=== PATIENT | male | born 1965 | race Caucasian/White ===

== ENCOUNTER 2024-08-27 23:44 | Inpatient (IN) | payer BC, SELFPAY ==
[2024-08-27 23:45] VITALS: BP 76/46; PULSE 62; RESP 15; TEMP 36.5; O2SAT 95; BMI 28.8
[2024-08-27] MEDS: sodium chloride 0.9% 1,000 ML 999 ML IV (23:45)
[2024-08-28] VITALS (102 sets, daily range): BP systolic 71–147; BP diastolic 41–115; PULSE 49–94; RESP 14–35; TEMP 37.1; O2SAT 94–100; BMI 29.7
--- NOTE | 2024-08-28 00:22 | XRR_ITS ---
PROCEDURE INFORMATION: Exam: XR Chest Exam date and time: 08/28/2024 12:26 AM Age: 59 years old Clinical indication: Other: Syncope TECHNIQUE: Imaging protocol: Radiologic exam of the chest. Views: 1 view. COMPARISON: No relevant prior studies available. FINDINGS: Lungs: Unremarkable. No consolidation. Pleural spaces: Unremarkable. No pleural effusion. No pneumothorax. Heart/Mediastinum: Unremarkable. No cardiomegaly. Bones/joints: Unremarkable. XR/XR chest 1V portable [id number] IMPRESSION: No acute findings.
--- NOTE | 2024-08-28 00:23 | ECG_ITS ---
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 Measurements Intervals [place] Rate: 59 P: 72 [place]: 226 QRS: 54 QRSD: 129 T: 69 QT: 423 QTc: 420 Interpretive Statements SINUS BRADYCARDIA WITH FIRST DEGREE AV BLOCK MODERATE INTRAVENTRICULAR CONDUCTION DELAY [110+ ms QRS DURATION] No previous ECG available for comparison Electronically Signed On 08-28-2024 17:46:50 CDT by Faisal Mosley M.D. [email or web address] [id number]
[2024-08-28 00:30] LABS: Basophils # 0.1 10^3/uL (0.0-0.1); Basophils % 0.7 %; Eosinophils # 0.1 10^3/uL (0.0-0.8); Eosinophils % 1.7 %; Hematocrit 28.2 % (37-53); Lymphocytes # 1.3 10^3/uL (0.8-4.8); Lymphocytes % 19.2 %; Mean Corpuscular HGB Conc 34.8 g/dL (30-55); Mean Corpuscular Hemoglobin 30.2 pg (27-33); Mean Corpuscular Volume 86.8 fl (82-101); Monocytes # 0.6 10^3/uL (0.2-0.9); Monocytes % 8.6 %; Neutrophils # 4.75 10^3/uL (1.8-7.7); Neutrophils % 69.4 %; Nucleated Red Blood Cells % 0 %; Platelet Count 159 10^3/cmm (157-399); Red Blood Count 3.25 10^6/uL (3.85-5.65); Red Cell Distribution Width 14.3 % (12.1-15.1); White Blood Count 6.86 10^3/uL (3.29-11.43)
[2024-08-28 00:38] LABS: Glucose Point of Care 125 mg/dL (70-110)
--- NOTE | 2024-08-28 00:38 | W.ED.SYNCOPE ---
Documented by User: Vadim Santiago DO 08/28/24 04:50 HPI - Syncope General: Chief Complaint: Syncope Stated Complaint: syncope Time Seen by Provider: 08/28/24 00:22 History of Present Illness: The patient presents with a chief complaint of syncope, reporting I just sat up and passed out. The patient describes a gradual decline in overall health, with recent changes in appetite and eating habits. They report having a huge appetite but experience gagging and vomiting after consuming only a few bites of food. The patient has recently made dietary changes, including cutting out soda consumption. They mention a history of hypertension and have been taking spironolactone and potassium supplements as prescribed by their primary care physician. The patient notes that when they run out of potassium or stop taking it, their potassium numbers tanked. The patient denies experiencing pain with urination, diarrhea, constipation, shortness of breath, chest pains, vomiting blood, or blood in stools. They also deny any recent hospitalizations. The patient is not currently taking Lasix. Patient is a poor historian. Related Data Home Medications ?Medication ?Instructions ?Recorded ?Confirmed bumetanide 1 mg tablet 1 mg PO BID 08/28/24 08/28/24 carvedilol 6.25 mg tablet 6.25 mg PO BID 08/28/24 08/28/24 gemfibrozil 600 mg tablet 600 mg PO BID 08/28/24 08/28/24 hydralazine 25 mg tablet See Rx Instructions .Route .COMPLEX 08/28/24 08/28/24 losartan 100 mg tablet 100 mg PO DAILY 08/28/24 08/28/24 potassium gluconate 600 mg (99 mg) 600 mg PO BID 08/28/24 08/28/24 tablet spironolactone 25 mg tablet 25 mg PO DAILY 08/28/24 08/28/24 Allergies Allergy/AdvReac Type Severity Reaction Status Date / Time acetaminophen (From Vicodin) Allergy Unknown Verified 08/28/24 00:13 fentanyl Allergy Unknown Verified 08/28/24 00:13 hydrocodone (From Vicodin) Allergy Unknown Verified 08/28/24 00:13 lisinopril Allergy ALGY-Difficulty Verified 08/28/24 00:13 Swallowing Review of Systems General: Reports: 10 or more systems reviewed and unremarkable except in HPI and below Physical Exam Const: COMMON NORMALS: no acute distress, patient oriented x3, healthy appearing, alert and well nourished HENMT: COMMON NORMALS: normocephalic HEAD & SCALP: normocephalic Eye: COMMON NORMALS: EOMs intact bilaterally Neck/C-Spine: COMMON NORMALS: full ROM and supple Resp: COMMON NORMALS: normal respiratory effort, No retractions and clear to auscultation bilaterally AUSCULTATION: clear to auscultation bilaterally Cardio: COMMON NORMALS: regular rhythm, No gallops present (Cardio) and No murmurs present (Cardio) RATE: bradycardic RHYTHM: regular rhythm GI: COMMON NORMALS: Soft to palpation and non-tender PALPATION: Yes Soft to palpation Extremity: GENERAL: Yes normal exam except as noted Neuro: COMMON NORMALS: patient oriented x3 SENSORIUM/ORIENTATION: Yes alert Skin: COMMON NORMALS: no rashes or lesions noted GENERAL SKIN EXAM: no rashes or lesions noted Course Vital Signs: Vital signs: Vital Signs Temperature 97.7 F 08/27/24 23:45 Pulse Rate 88 08/28/24 10:22 Respiratory Rate 22 H 08/28/24 05:58 Blood Pressure 103/62 08/28/24 08:39 Pulse Oximetry 98 08/28/24 10:22 Oxygen Delivery Me thod Room Air 08/28/24 10:22 MDM - Syncope Medical Decision Making 59-year-old male presents to the emergency department for evaluation of a syncopal episode. Upon arrival in the emergency department he is significantly hypotensive. Initial 1000 mL fluid bolus did not improve his blood pressure. Patient was alert and oriented. On his EKG he is sinus bradycardic with first-degree AV block. Patient was started on Levophed with some improvement in his blood pressure. However, his heart rate started to slow. The patient was then switched to epinephrine. Patient's labs demonstrated anemia with a hemoglobin of 9.8. He appears to have acute kidney failure with a BUN of 115 and a creatinine of 5.1. Additionally he has hyponatremia and significant hyperkalemia. The patient received calcium gluconate, insulin, and dextrose. Patient's abdominal/pelvis CT was normal. Had a normal chest x-ray. Urinalysis and urine drug screen were also noncontributory. Contacted [facility] for transfer for nephrology and CRRT. Awaiting callback from heating worker. Case signed out to Dr. Renee. Lab Data 08/28/24 00:04 08/28/24 05:52 Radiology Impressions Chest X-Ray 08/28/24 00:22 IMPRESSION: No acute findings. Abdomen/Pelvis CT 08/28/24 02:17 IMPRESSION: No evidence of acute abdominal or pelvic process. Laboratory Results WBC 6.86 10^3/uL (3.29-11.43) 08/28/24 00:04 RBC 3.25 10^6/uL (3.85-5.65) L 08/28/24 00:04 Hgb 9.80 g/dL (11.27-16.99) L 08/28/24 00:04 Hct 28.2 % (37-53) L 08/28/24 00:04 MCV 86.8 fl (82-101) 08/28/24 00:04 MCH 30.2 pg (27-33) 08/28/24 00:04 MCHC 34.8 g/dL (30-55) 08/28/24 00:04 RDW 14.3 % (12.1-15.1) 08/28/24 00:04 Plt Count 159 10^3/cmm (157-399) 08/28/24 00:04 MPV 10.0 fL (7.4-10.4) 08/28/24 00:04 Neut % (Auto) 69.4 % 08/28/24 00:04 Lymph % (Auto) 19.2 % 08/28/24 00:04 [place] % (Auto) 8.6 % 08/28/24 00:04 Eos % (Auto) 1.7 % 08/28/24 00:04 Baso % (Auto) 0.7 % 08/28/24 00:04 Neut # (Auto) 4.75 10^3/uL (1.8-7.7) 08/28/24 00:04 Lymph # (Auto) 1.3 10^3/uL (0.8-4.8) 08/28/24 00:04 [place] # (Auto) 0.6 10^3/uL (0.2-0.9) 08/28/24 00:04 Eos # (Auto) 0.1 10^3/uL (0.0-0.8) 08/28/24 00:04 Baso # (Auto) 0.1 10^3/uL (0.0-0.1) 08/28/24 00:04 Nucleated RBC % (auto) 0 % 08/28/24 00:04 Nucleated RBCs # 0.0 /100WBC 08/28/24 00:04 Sodium 127 mmol/L (136-145) L 08/28/24 05:52 Potassium 6.7 mmol/L (3.5-5.1) H* 08/28/24 05:52 Chloride 98 mmol/L (98-107) 08/28/24 05:52 Carbon Dioxide 13 mmol/L (22-29) L 08/28/24 05:52 Anion Gap 22.7 (5-19) H 08/28/24 05:52 BUN 107 mg/dL (6-20) H* 08/28/24 05:52 Creatinine 4.7 mg/dL (0.7-1.2) H 08/28/24 05:52 GFR Calculation 12.9 mL/min (90-130) L 08/28/24 05:52 Glucose 136 mg/dL (65-115) H 08/28/24 05:52 POC Glucose 137 mg/dL (70-110) H 08/28/24 07:18 Calculated Osmolality 300 mOsm/kg (285-295) H 08/28/24 05:52 Lactic Acid 0.9 mmol/L (0.5-2.2) 08/28/24 00:04 Calcium 9.1 mg/dL (8.5-10.5) 08/28/24 05:52 Magnesium 2.5 mg/dL (1.7-2.3) H 08/28/24 05:52 Total Bilirubin 0.3 mg/dL (0.15-1.2) 08/28/24 00:04 AST 10 U/L (0-40) 08/28/24 00:04 ALT 7 U/L (0-41) 08/28/24 00:04 Alkaline Phosphatase 49 U/L (40-130) 08/28/24 00:04 Creatine Kinase 40 U/L (39-308) 08/28/24 05:52 Troponin T Baseline 77 ng/L (0-15) H 08/28/24 00:04 Troponin T 120 Minute 62.44 ng/L (0-15) H 08/28/24 02:14 Delta Troponin T -14.56 ABS# (0-10) L 08/28/24 02:14 Troponin T Hi Sens 6Hr 61.82 ng/L (0-15) H 08/28/24 05:52 Troponin T Hi Sens 6Hr Delta -15.18 ng/L (0-12) L 08/28/24 05:52 Total Protein 6.8 g/dL (6.6-8.7) 08/28/24 00:04 Albumin 4.2 g/dL (3.5-5.2) 08/28/24 00:04 Globulin 2.6 g/dL (1.3-4.6) 08/28/24 00:04 Urine Color Yellow (Yellow) 08/28/24 01: Urine Appearance Cloudy (CLEAR) A 08/28/24 01:27 Urine pH 5.0 (5-7) 08/28/24 01: Ur Specific [place] 1.011 (1.005-1.030) 08/28/24 01:27 Urine Protein 1+ (Negative) A 08/28/24 01:27 Urine Glucose (UA) Negative (Normal) 08/28/24 01: Urine Ketones Negative (Negative) 08/28/24 01: Urine Blood Non-haemolysed trace (Negative) 08/28/24 01: Urine Nitrate Negative (Negative) 08/28/24 01:27 Urine Bilirubin Negative (Negative) 08/28/24 01: Urine Urobilinogen 0.2 mg/dL (Negative) 08/28/24 01:27 Ur Leukocyte Esterase Trace (Negative) A 08/28/24 01:27 Urine RBC 3-5 /hpf (0-2) 08/28/24 01:27 Urine WBC 0-5 /hpf (0-5) 08/28/24 01:27 Ur Squamous Epith Cells 11-20 /hpf (0-5) H 08/28/24 01: Amorphous Sediment Not Reportable 08/28/24 01:27 Urine Bacteria None seen /hpf (NONE) 08/28/24 01:27 Hyaline Casts 2.46 /lpf 08/28/24 01:27 Urine Opiates Screen Negative ng/mL (Negative) 08/28/24 01: Ur Barbiturates Screen Negative ng/mL (Negative) 08/28/24 01:27 Ur Phencyclidine Scrn Negative ng/mL (Negative) 08/28/24 01:27 Ur Amphetamines Screen Negative ng/mL (Negative) 08/28/24 01:27 U Benzodiazepines Scrn Negative ng/mL (Negative) 08/28/24 01:27 Urine Cocaine Screen Negative ng/mL (Negative) 08/28/24 01:27 U Marijuana (THC) Screen Negative ng/mL (Negative) 08/28/24 01:27 Discharge Plan Discharge Patient Disposition: Admitted As Inpatient Admit Provider: Jose Miguel Coy Clinical Impression: KILO (acute kidney injury), Hyperkalemia Condition: Stable Sign Out Sign Out Data: Patient Sign Out occurred on 08/28/24 at 05:34. Patient's care was discussed, and care was transferred from Vadim Santiago DO to Martin Renee DO. Coding Level of Care Code ED Clearing Distribution Clerk for Chg Fwd Documented by User: Martin Renee DO 08/28/24 10:35 HPI - Syncope General: Chief Complaint: Syncope Stated Complaint: syncope Time Seen by Provider: 08/28/24 00:22 Related Data Home Medications ?Medication ?Instructions ?Recorded ?Confirmed bumetanide 1 mg tablet 1 mg PO BID 08/28/24 08/28/24 carvedilol 6.25 mg tablet 6.25 mg PO BID 08/28/24 08/28/24 gemfibrozil 600 mg tablet 600 mg PO BID 08/28/24 08/28/24 hydralazine 25 mg tablet See Rx Instructions .Route .COMPLEX 08/28/24 08/28/24 losartan 100 mg tablet 100 mg PO DAILY 08/28/24 08/28/24 potassium gluconate 600 mg (99 mg) 600 mg PO BID 08/28/24 08/28/24 tablet spironolactone 25 mg tablet 25 mg PO DAILY 08/28/24 08/28/24 Allergies Allergy/AdvReac Type Severity Reaction Status Date / Time acetaminophen (From Vicodin) Allergy Unknown Verified 08/28/24 00:13 fentanyl Allergy Unknown Verified 08/28/24 00:13 hydrocodone (From Vicodin) Allergy Unknown Verified 08/28/24 00:13 lisinopril Allergy ALGY-Difficulty Verified 08/28/24 00:13 Swallowing Course Vital Signs: Vital signs: Vital Signs Temperature 97.7 F 08/27/24 23:45 Pulse Rate 88 08/28/24 10:22 Respiratory Rate 22 H 08/28/24 05:58 Blood Pressure 103/62 08/28/24 08:39 Pulse Oximetry 98 08/28/24 10:22 Oxygen Delivery Me thod Room Air 08/28/24 10:22 MDM - Syncope Medical Decision Making 59-year-old male presents to the emergency department for evaluation of a syncopal episode. Upon arrival in the emergency department he is significantly hypotensive. Initial 1000 mL fluid bolus did not improve his blood pressure. Patient was alert and oriented. On his EKG he is sinus bradycardic with first-degree AV block. Patient was started on Levophed with some improvement in his blood pressure. However, his heart rate started to slow. The patient was then switched to epinephrine. Patient's labs demonstrated anemia with a hemoglobin of 9.8. He appears to have acute kidney failure with a BUN of 115 and a creatinine of 5.1. Additionally he has hyponatremia and significant hyperkalemia. The patient received calcium gluconate, insulin, and dextrose. Patient's abdominal/pelvis CT was normal. Had a normal chest x-ray. Urinalysis and urine drug screen were also noncontributory. Contacted [facility] for transfer for nephrology and CRRT. Awaiting callback from heating worker. Case signed out to Dr. Renee. Care assumed at change of shift patient given 30 mL/kg fluid bolus he received 1 L earlier. He was given more calcium chloride sodium bicarbonate with D5 and more insulin as well as 10 mg of nebulized albuterol. His heart rate began to improve blood pressure improved as well we are able to titrate him off of the epinephrine he did become somewhat hypotensive again. Concerned about continued fluid boluses causing hyper hyperchloremic acidosis. Will admit to ICU consult nephrology. His repeat labs show improvement of his creatinine and his potassium the other interventions we have administered I think are continuing to improve it given his bradycardia is improving. At 1 point on the rhythm monitor looks like he had a junctional rhythm that has resolved. Discussed with nephrology they feel comfortable admitting him here at this point also discussed with hospitalist will admit to the ICU. Reviewing his medicines I believe a good portion of this is iatrogenic from his Bumex spironolactone and potassium supplement as well as the losartan Medical Records I reviewed the patient's medical records. Lab Data I reviewed the patient's lab results. 08/28/24 00:04 08/28/24 05:52 Radiology Impressions Chest X-Ray 08/28/24 00:22 IMPRESSION: No acute findings. Abdomen/Pelvis CT 08/28/24 02:17 IMPRESSION: No evidence of acute abdominal or pelvic process. Laboratory Results WBC 6.86 10^3/uL (3.29-11.43) 08/28/24 00:04 RBC 3.25 10^6/uL (3.85-5.65) L 08/28/24 00:04 Hgb 9.80 g/dL (11.27-16.99) L 08/28/24 00:04 Hct 28.2 % (37-53) L 08/28/24 00:04 MCV 86.8 fl (82-101) 08/28/24 00:04 MCH 30.2 pg (27-33) 08/28/24 00:04 MCHC 34.8 g/dL (30-55) 08/28/24 00:04 RDW 14.3 % (12.1-15.1) 08/28/24 00:04 Plt Count 159 10^3/cmm (157-399) 08/28/24 00:04 MPV 10.0 fL (7.4-10.4) 08/28/24 00:04 Neut % (Auto) 69.4 % 08/28/24 00:04 Lymph % (Auto) 19.2 % 08/28/24 00:04 [place] % (Auto) 8.6 % 08/28/24 00:04 Eos % (Auto) 1.7 % 08/28/24 00:04 Baso % (Auto) 0.7 % 08/28/24 00:04 Neut # (Auto) 4.75 10^3/uL (1.8-7.7) 08/28/24 00:04 Lymph # (Auto) 1.3 10^3/uL (0.8-4.8) 08/28/24 00:04 [place] # (Auto) 0.6 10^3/uL (0.2-0.9) 08/28/24 00:04 Eos # (Auto) 0.1 10^3/uL (0.0-0.8) 08/28/24 00:04 Baso # (Auto) 0.1 10^3/uL (0.0-0.1) 08/28/24 00:04 Nucleated RBC % (auto) 0 % 08/28/24 00:04 Nucleated RBCs # 0.0 /100WBC 08/28/24 00:04 Sodium 127 mmol/L (136-145) L 08/28/24 05:52 Potassium 6.7 mmol/L (3.5-5.1) H* 08/28/24 05:52 Chloride 98 mmol/L (98-107) 08/28/24 05:52 Carbon Dioxide 13 mmol/L (22-29) L 08/28/24 05:52 Anion Gap 22.7 (5-19) H 08/28/24 05:52 BUN 107 mg/dL (6-20) H* 08/28/24 05:52 Creatinine 4.7 mg/dL (0.7-1.2) H 08/28/24 05:52 GFR Calculation 12.9 mL/min (90-130) L 08/28/24 05:52 Glucose 136 mg/dL (65-115) H 08/28/24 05:52 POC Glucose 137 mg/dL (70-110) H 08/28/24 07:18 Calculated Osmolality 300 mOsm/kg (285-295) H 08/28/24 05:52 Lactic Acid 0.9 mmol/L (0.5-2.2) 08/28/24 00:04 Calcium 9.1 mg/dL (8.5-10.5) 08/28/24 05:52 Magnesium 2.5 mg/dL (1.7-2.3) H 08/28/24 05:52 Total Bilirubin 0.3 mg/dL (0.15-1.2) 08/28/24 00:04 AST 10 U/L (0-40) 08/28/24 00:04 ALT 7 U/L (0-41) 08/28/24 00:04 Alkaline Phosphatase 49 U/L (40-130) 08/28/24 00:04 Creatine Kinase 40 U/L (39-308) 08/28/24 05:52 Troponin T Baseline 77 ng/L (0-15) H 08/28/24 00:04 Troponin T 120 Minute 62.44 ng/L (0-15) H 08/28/24 02:14 Delta Troponin T -14.56 ABS# (0-10) L 08/28/24 02:14 Troponin T Hi Sens 6Hr 61.82 ng/L (0-15) H 08/28/24 05:52 Troponin T Hi Sens 6Hr Delta -15.18 ng/L (0-12) L 08/28/24 05:52 Total Protein 6.8 g/dL (6.6-8.7) 08/28/24 00:04 Albumin 4.2 g/dL (3.5-5.2) 08/28/24 00:04 Globulin 2.6 g/dL (1.3-4.6) 08/28/24 00:04 Urine Color Yellow (Yellow) 08/28/24 01: Urine Appearance Cloudy (CLEAR) A 08/28/24 01: Urine pH 5.0 (5-7) 08/28/24 01:27 Ur Specific [place] 1.011 (1.005-1.030) 08/28/24 01: Urine Protein 1+ (Negative) A 08/28/24: Urine Glucose (UA) Negative (Normal) 08/28/24 01: Urine Ketones Negative (Negative) 08/28/24 01: Urine Blood Non-haemolysed trace (Negative) 08/28/24: Urine Nitrate Negative (Negative) 08/28/24 01: Urine Bilirubin Negative (Negative) 08/28/24 01: Urine Urobilinogen 0.2 mg/dL (Negative) 08/28/24 01:27 Ur Leukocyte Esterase Trace (Negative) A 08/28/24 01: Urine RBC 3-5 /hpf (0-2) 08/28/24 01:27 Urine WBC 0-5 /hpf (0-5) 08/28/24 01:27 Ur Squamous Epith Cells 11-20 /hpf (0-5) H 08/28/24 01:27 Amorphous Sediment Not Reportable 08/28/24 01:27 Urine Bacteria None seen /hpf (NONE) 08/28/24 01:27 Hyaline Casts 2.46 /lpf 08/28/24 01:27 Urine Opiates Screen Negative ng/mL (Negative) 08/28/24 01:27 Ur Barbiturates Screen Negative ng/mL (Negative) 08/28/24 01:27 Ur Phencyclidine Scrn Negative ng/mL (Negative) 08/28/24 01:27 Ur Amphetamines Screen Negative ng/mL (Negative) 08/28/24 01:27 U Benzodiazepines Scrn Negative ng/mL (Negative) 08/28/24 01:27 Urine Cocaine Screen Negative ng/mL (Negative) 08/28/24 01:27 U Marijuana (THC) Screen Negative ng/mL (Negative) 08/28/24 01:27 All radiology interpretation(s) finalized by discharge Critical Care Time Critical Care Time: Critical Care Time: Yes Total Critical Care Time: 35 Attestation: The high probability of a clinically significant, sudden or life threatening deterioration of the patient's cardiovascular renal system(s) required my full and direct attention, intervention and personal management. The critical care time is as shown. This time is in addition to time spent performing any reported procedures but includes the following: [x] Data and vital sign review and interpretation [x] Patient assessment, examination and intervention [x] Documentation [x] Medication orders and management Discharge Plan Discharge Patient Disposition: Admitted As Inpatient Admit Provider: Jose Miguel Coy Clinical Impression: KILO (acute kidney injury), Hyperkalemia Condition: Stable Sign Out Sign Out Data: Patient Sign Out occurred on 08/28/24 at 05:34. Patient's care was discussed, and care was transferred from Vadim Santiago DO to Martin Renee DO. Coding Level of Care Code ED Clearing Distribution Clerk for Bindu Guillen
[2024-08-28 00:42] LABS: Troponin(5th) Baseline 77 ng/L (0-15)
[2024-08-28 00:45] LABS: Alanine Aminotransferase 7 U/L (0-41); Albumin Level 4.2 g/dL (3.5-5.2); Alkaline Phosphatase 49 U/L (40-130); Anion Gap 24.4 (5-19); Aspartate Amino Transferase 10 U/L (0-40); Carbon Dioxide 12 mmol/L (22-29); Chloride 98 mmol/L (98-107); Creatinine Clr Calc Pharmacy 17.5937; Globulin 2.6 g/dL (1.3-4.6); Glomerular Filtration Rate 11.8 mL/min (90-130); Glucose 108 mg/dL (65-115); Sodium 127 mmol/L (136-145); Total Bilirubin 0.3 mg/dL (0.15-1.2); Total Protein 6.8 g/dL (6.6-8.7)
[2024-08-28 00:46] LABS: Lactic Sepsis W/Reflex 0.9 mmol/L (0.5-2.2)
[2024-08-28 00:52] LABS: Blood Urea Nitrogen 115 mg/dL (6-20); Osmolality Calculated 301 mOsm/kg (285-295); Potassium 7.4 mmol/L (3.5-5.1)
[2024-08-28] MEDS: norepinephrine 4 MG/250 ML BAG 15 MG IV ×2 (00:53→19:25)
--- NOTE | 2024-08-28 00:54 | PC.NURSE ---
PER MD, START NOREPINEPHRINE AT 4MCG/MIN.
--- NOTE | 2024-08-28 01:34 | ECG_ITS ---
[facility] Test Date: 2024-08-28 Pat Name: Dangelo trevion Department: Room: Gender: Male Electrophysiology Tech: : 1965 Requested By: Vadim Law Order Number: [id number] Lyon MD: Faisal Mosley M.D. Measurements Intervals [place] Rate: 59 P: 79 MA: 237 QRS: 56 QRSD: 112 T: 73 QT: 443 QTc: 441 Interpretive Statements SINUS BRADYCARDIA WITH SINUS ARRHYTHMIA WITH FIRST DEGREE AV BLOCK MODERATE INTRAVENTRICULAR CONDUCTION DELAY [110+ ms QRS DURATION] No previous ECG available for comparison Electronically Signed On 08-28-2024 06:19:38 CDT by Faisal Mosley M.D. [email or web address] [id number]
[2024-08-28 01:37] LABS: Bilirubin Urine Negative (Negative); Blood Urine Non-haemolysed trace (Negative); Glucose Urine UA Negative (Normal); Ketones Urine Negative (Negative); Leukocyte Esterase Urine Trace (Negative); Nitrate Urine Negative (Negative); Protein Urine 1+ (Negative); Specific Gravity, Urine 1.011 (1.005-1.030); Urine Appearance Cloudy (CLEAR); Urobilinogen Urine 0.2 mg/dL (Negative)
[2024-08-28 01:42] LABS: Add Urine Microscopic? YES; Bacteria Urine None Seen /hpf; Hyaline Casts Urine 2.46 /lpf; WBC Urine 0-5 /hpf (0-5)
[2024-08-28 01:44] LABS: Amphetamines Screen Urine Negative (Negative); Barbiturates Screen Urine Negative (Negative); Benzodiazepines Screen Urine Negative (Negative); Cocaine Screen Urine Negative (Negative); Opiate Screen Urine Negative (Negative); PCP Screen Urine Negative (Negative); THC Screen Urine Negative (Negative)
[2024-08-28] MEDS: EPINEPHrine 2.5 MG in sodium chloride 0.9% 250 ML 26.66 MG IV (01:59)
[2024-08-28 02:07] LABS: UA Slide Review UA Slide Review Perf; Urine Color Yellow (Yellow)
[2024-08-28] MEDS: dextrose 10% 250 ML 1000 ML IV (02:14)
--- NOTE | 2024-08-28 02:17 | CTR_ITS ---
PROCEDURE INFORMATION: Exam: CT Abdomen And Pelvis Without Contrast Exam date and time: 08/28/2024 2:53 AM Age: 59 years old Clinical indication: Abdominal pain; Generalized; Acute renal failure, syncopal episode, low BP; Additional info: Generalized abdominal pain, acute renal failure TECHNIQUE: Imaging protocol: Computed tomography of the abdomen and pelvis without contrast. Radiation optimization: All CT scans at this facility use at least one of these dose optimization techniques: automated exposure control; mA and/or kV adjustment per patient size (includes targeted exams where dose is matched to clinical indication); or iterative reconstruction. COMPARISON: CR (CHEST, ) 08/28/2024 12:26 AM RADIATION DOSE METRICS: Total DLP (mGy-cm): 811.6 FINDINGS: Liver: Normal. No mass. Gallbladder and biliary ducts: Normal. No calcified stones. No ductal dilation. Pancreas: Normal. No ductal dilation. Spleen: Normal. No splenomegaly. Adrenal glands: Normal. No mass. Kidneys and ureters: Normal. No hydronephrosis. Stomach and bowel: Unremarkable. No obstruction. No mucosal thickening. Appendix: No evidence of appendicitis. Intraperitoneal space: Unremarkable. No free air. No significant fluid collection. Vasculature: Aortoiliac atherosclerotic disease is seen without evidence of aneurysm. Lymph nodes: Unremarkable. No enlarged lymph nodes. Urinary bladder: Hameed catheter with the tip in the urinary bladder. Reproductive: Unremarkable as visualized. Bones/joints: Unremarkable. No acute fracture. Soft tissues: Unremarkable. CT/CT abdomen pelvis wo con [id number] IMPRESSION: No evidence of acute abdominal or pelvic process.
[2024-08-28] MEDS: calcium gluconate 0.1 gm/mL 10% SDV 10mL 1 GM IVP (02:25)
[2024-08-28 02:41] LABS: Troponin 5 2HR 62.44 ng/L (0-15)
[2024-08-28 02:42] LABS: Troponin 5 2HR Delta -14.56 ABS# (0-10)
[2024-08-28] MEDS: insulin regular-human 100 units/1 mL 10 UNIT IVP ×2 (02:44→07:29)
[2024-08-28 02:47] LABS: Glucose Point of Care 120 mg/dL (70-110)
[2024-08-28 02:47] LABS: Glucose Point of Care 245 mg/dL (70-110)
[2024-08-28] MEDS: nicotine 21 mg Patch 1 PATCH TRANSDERMA (03:28)
[2024-08-28 03:29] LABS: Glucose Point of Care 176 mg/dL (70-110)
[2024-08-28 04:15] LABS: Glucose Point of Care 150 mg/dL (70-110)
[2024-08-28] MEDS: albuterol 2.5 MG/0.5 ML NEB 10 MG INHALATION (05:40)
[2024-08-28] MEDS: calcium chloride 10% Syr 10 mL 1 GM IVP (05:58)
[2024-08-28] MEDS: SODIUM CHLORIDE 0.9% 2656.23 ML IV (06:03)
--- NOTE | 2024-08-28 06:07 | ECG_ITS ---
[facility] Test Date: 2024-08-28 Pat Name: Dangelo Main Department: Room: Gender: Male Recycle Worker: : 1965 Requested By: Martin Sloan Order Number: [id number] Sonali MD: Faisal Mosley M.D. Measurements Intervals [place] Rate: 58 P: 78 CT: 223 QRS: 51 QRSD: 117 T: 59 QT: 414 QTc: 407 Interpretive Statements SINUS BRADYCARDIA WITH SINUS ARRHYTHMIA WITH FIRST DEGREE AV BLOCK MODERATE INTRAVENTRICULAR CONDUCTION DELAY [110+ ms QRS DURATION] INTERPRETATION BASED ON A DEFAULT AGE OF 40 YEARS Compared to ECG 08/28/2024 02:04:51 No significant changes Electronically Signed On 08-28-2024 17:45:18 CDT by Faisal Mosley M.D. [id number]
[2024-08-28 06:23] LABS: Anion Gap 22.7 (5-19); Calcium 9.1 mg/dL (8.5-10.5); Carbon Dioxide 13 mmol/L (22-29); Chloride 98 mmol/L (98-107); Creatine Phosphokinase 40 U/L (39-308); Creatinine Clr Calc Pharmacy 19.0911; Glomerular Filtration Rate 12.9 mL/min (90-130); Glucose 136 mg/dL (65-115); Magnesium 2.5 mg/dL (1.7-2.3); Osmolality Calculated 300 mOsm/kg (285-295); Sodium 127 mmol/L (136-145)
[2024-08-28 06:24] LABS: Glucose Point of Care 152 mg/dL (70-110)
[2024-08-28 06:31] LABS: Potassium 6.7 mmol/L (3.5-5.1)
[2024-08-28 06:32] LABS: Blood Urea Nitrogen 107 mg/dL (6-20)
[2024-08-28 06:40] LABS: Troponin 5 6HR 61.82 ng/L (0-15)
[2024-08-28 06:46] LABS: Troponin 5 6HR Delta -15.18 ng/L (0-12)
--- NOTE | 2024-08-28 06:58 | ECG_ITS ---
[facility] Date: 2024-08-28 Pat Name: Dangelo Main Department: Room: Gender: Male Instrument Assembler: : 1965 Requested By: Vadim Law Order Number: [id number] Lyon MD: Faisal Mosley M.D. Measurements Intervals [place] Rate: 70 P: 253 NH: 185 QRS: 53 QRSD: 116 T: 69 QT: 395 QTc: 427 Interpretive Statements sinus rhythm with the first degree AV block MODERATE INTRAVENTRICULAR CONDUCTION DELAY [110+ ms QRS DURATION] ABNORMAL RHYTHM ECG Compared to ECG 08/28/2024 06:07:56 Sinus bradycardia no longer present Sinus arrhythmia no longer present First degree AV block no longer present Electronically Signed On 08-28-2024 17:50:07 CDT by Faisal Mosley M.D. [email or web address] [id number]
[2024-08-28] MEDS: sodium bicarbonate 8.4% syr 150 MEQ in dextrose 5% 200 ML 700 MEQ IV (07:21)
[2024-08-28 07:31] LABS: Glucose Point of Care 137 mg/dL (70-110)
[2024-08-28] MEDS: norepinephrine 4 MG/250 ML BAG 30 MG IV (07:51)
[2024-08-28 07:52] LABS: Glucose Point of Care 174 mg/dL (70-110)
--- NOTE | 2024-08-28 09:48 | PM.CONSULT ---
Providers/Reason For Consult Consulting Physician/Specialty*: Jay Booker MD/ tele-nephrology Reason for Consult*: Acute kidney injury hyperkalemia. Requesting Physician: Dr Jose Miguel Coy Attending Physician: Jose Miguel Coy History of Present Illness History of Present Illness Dangelo Main is a 59 year old male first admission to [facility]. The patient states that he has history of pneumonia CHF chronic kidney disease and kidney stones. The patient states at home he was taking Bumex spironolactone losartan and NSAIDs. The patient presented yesterday he was lightheaded dizzy could not get up and had recurrent falls. The patient has been given IV fluids in the emergency room and feels better. The patient emergency room was found to have a potassium of 7.4, hyponatremia, increased anion gap metabolic acidosis, and acute kidney injury. When I see him now is after fluid boluses he is urinating he still on pressors in the ICU awake and alert and able to give a history. Review of Systems Narrative: Weak with falling at home severe right sided flank pain poor sleep headaches lightheadedness dizziness no cough no fevers no chills no chest pain no abdominal pain no difficulty or change in urine pattern positive leg pains. Medications/Allergies Home Medications ?Medication ?Instructions ?Recorded ?Confirmed ?Last Taken ?Type bumetanide 1 mg tablet 1 mg PO BID 08/28/24 08/28/24 08/27/24 History carvedilol 6.25 mg tablet 6.25 mg PO BID 08/28/24 08/28/24 08/27/24 History gemfibrozil 600 mg tablet 600 mg PO BID 08/28/24 08/28/24 Unknown History hydralazine 25 mg tablet See Rx Instructions .Route .COMPLEX 08/28/24 08/28/24 Unknown History losartan 100 mg tablet 100 mg PO DAILY 08/28/24 08/28/24 08/27/24 History potassium gluconate 600 mg (99 mg) 600 mg PO BID 08/28/24 08/28/24 08/27/24 History tablet spironolactone 25 mg tablet 25 mg PO DAILY 08/28/24 08/28/24 08/27/24 History Allergies Allergy/AdvReac Type Severity Reaction Status Date / Time acetaminophen (From Vicodin) Allergy Unknown Verified 05/20/25 00:13 fentanyl Allergy Unknown Verified 08/28/24 00:13 hydrocodone (From Vicodin) Allergy Unknown Verified 08/28/24 00:13 lisinopril Allergy ALGY-Difficulty Verified 08/28/24 00:13 Swallowing Current Medications Generic Name Dose Route Start Last Admin Trade Name Freq PRN Reason Stop Dose Admin Epinephrine HCl 2.5 mg/ Sodium 252.5 mls @ 26.664 mls/hr 08/28/24 01:30 08/28/24 07:23 Chloride IV 0 mcg/min .Q9H29M INDER 0 mls/hr Protocol Titration 4.4 MCG/MIN Dextrose 250 mls @ 1,000 mls/hr 08/28/24 01:32 08/28/24 02:41 D10w IV Infused PRN PRN Infusion Adult Acute Hypoglycemia Nursing Protocol Protocol Dextrose 1,000 mls @ 100 mls/hr 08/28/24 01:45 08/28/24 02:35 D10w IV Not Given .Q10H INDER Norepinephrine Bitartrate 4 mg in 250 mls @ 0 mls/hr 08/28/24 07:45 08/28/24 07:51 Levophed IV 8 mcg/min .Q0M INDER 30 mls/hr Protocol Administration Per Protocol Vitals/I&O/Wt Last Vital Signs Temp 97.7 F 08/27/24 23:45 Pulse 89 08/28/24 08:39 Resp 22 H 08/28/24 05:58 BP 103/62 08/28/24 08:39 Pulse Ox 99 08/28/24 08:39 O2 Del Method Room Air 08/28/24 07:45 08/27/24 08/28/24 08/28/24 22:59 06:59 14:59 Intake Total 1320.347 / 3864.724 1282.948 / 3152.948 Balance 1320.347 / 3428.749 7490.948 / 3152.948 Weight last 48 hrs Weight 88.541 kg Physical Exam Narrative: Patient is hemodynamically stable no apparent distress in bed on pressors. HEENT normocephalic/atraumatic. Neck is supple no JVP Lungs clear to auscultation. Heart regular no rubs or gallops. Abdomen soft positive bowel sounds extremities have no edema neurologically awake alert oriented x 3. Data 08/28/24 00:04 08/28/24 05:52 A&P Assessment and plan (1) KILO (acute kidney injury): 59-year-old man with some degree of heart failure with home was on humidity spironolactone losartan and potassium. Patient presented after falling and having lethargy. The patient is being evaluated for cardiogenic versus septic shock or mixed picture. 1. Acute kidney injury please try to get old labs. CT scan had normal kidneys. No stones noted. No hydronephrosis. Urinalysis was cloudy 1+ protein trace leuk esterase 3-5 RBCs, urine squamous epithelial cells 11-20 hyaline casts 0.46. I am concerned that the patient has acute on chronic renal failure we will check a PTH will check basic serologies. Will check an SPEP and serum immunofixation. The patient is using NSAIDs however not that often. 2. Hyponatremia likely from overdiuresis. Check urine electrolites and give IV fluids. Check TSH and cortisol level especially since patient is hypotensive. 3. Hyperkalemia likely from acute kidney injury taking potassium and losartan. His metabolic acidosis. 4. Increased anion gap metabolic acidosis currently anion gap is 16. No ketones in urine. Normal lactic acid. Glucose 136 unlikely to be DKA. Patient was not on an SGLT2 inhibitor as far as we know. Urine tox negative. 5. Full anemia evaluation. 6. Check echo. Patient is on pressors. Will treat with lactated Ringer's and monitor. Hopefully sodium should improve. If sodium drops may need to change to half-normal saline with bicarbonate. Consider cardiology evaluation. Further intervention depending on original workup. Will ensure the patient's potassium is improving which should show this patient has urinated significantly. No emergent need for dialysis at this time. Patient was seen and examined with the aid of a nurse using audiovisual equipment. The patient consented to telehealth. Plan See above. PDMP PDMP Reviewed: Not Reviewed Consult Attestations Medical Necessity Statement: The patient is in shock evaluate for cardiogenic versus septic. Patient is acute kidney injury hyponatremia and hyperkalemia. Time Spent in Patient Care: Greater than 35 minutes (>than 50% of time spent in counselling and/or direct pt care on unit). Coding Level of Care Code Acute Code for [facility] Diagnoses KILO (acute kidney injury) N17.9
--- NOTE | 2024-08-28 10:00 | USCV_ITS ---
Dangelo Main Age: 59 Gender: M : 1965 Exam Date: 08/28/2024 18:38 Ordering Phys: Jay Booker MD Technologist: ANA Exam Location: [facility] [place] Indication: chf near syncope, chronic renal disease, long- term smoker continues smoking BP: 147 / 115 HR: 80 Rhythm: Sinus Technical Quality: Adequate MEASUREMENTS (Male / Female) Normal Values 2D ECHO LV Diastolic Diameter PLAX 4.9 cm 4.2 - 5.9 / 3.9 - 5.3 cm IVS Diastolic Thickness 1.3 cm 0.6 - 1.0 / 0.6 - 0.9 cm IVS Systolic Thickness 1.8 cm LVPW Diastolic Thickness 1.3 cm 0.6 - 1.0 / 0.6 - 0.9 cm LVPW Systolic Thickness 1.2 cm LVOT Diameter 1.8 cm LV Ejection Fraction 2D Teich 72.1 % LV Ejection Fraction MOD 4C 65.4 % LV Ejection Fraction MOD 2C 20.7 % LV Ejection Fraction 2C AL 20.5 % LA Diameter 3.2 cm Aorta at Sinotubular Diameter 2.8 cm IVC Diameter 1.5 cm M-MODE LA Ao Ratio MM 1.2 AV Cusp Separation MM 1.2 cm DOPPLER AV Peak Velocity 297.0 cm/s LVOT Peak Velocity 134.0 cm/s AV Area Cont Eq vti 1.4 cm squared AV Area Cont Eq pk 1.2 cm squared MV Peak Velocity 157.0 cm/s MV Area PHT 2.7 cm squared Mitral E to A Ratio 0.8 TV Peak E Velocity 67.0 cm/s PV Peak Velocity 102.0 cm/s FINDINGS Left Ventricle Normal left ventricular size, systolic function and wall thickness, with no regional wall motion abnormalities. Left ventricular ejection fraction is estimated at 60 %. Grade I/IV diastolic dysfunction (abnormal relaxation filling pattern), normal to mildly elevated filling pressures. Right Ventricle The right ventricle is normal in size and function. Right Atrium The right atrium is normal in size. Left Atrium The left atrium is normal in size. Mitral Valve Structurally normal mitral valve without significant stenosis or prolapse. There is trace mitral regurgitation. Aortic Valve Structurally normal aortic valve without significant sclerosis or stenosis. There is trace aortic regurgitation. Tricuspid Valve Structurally normal tricuspid valve without significant stenosis or regurgitation. Pulmonary artery systolic pressure is normal. Pulmonic Valve Structurally normal pulmonic valve without significant stenosis. There is no pulmonic regurgitation. Pericardium Normal pericardium without effusion. Aorta Normal ascending aorta dimension. IVC The inferior vena cava appears normal. CONCLUSIONS Normal left ventricular size, systolic function and wall thickness, with no regional wall motion abnormalities. Left ventricular ejection fraction is estimated at 60 %. Grade I/IV diastolic dysfunction (abnormal relaxation filling pattern), normal to mildly elevated filling pressures. There is no pericardial effusion. No significant valve abnormalities. Right atrial pressure is around 5 mm of mercury. Gadiel Chatman MD (Electronically Signed) Final Date: 28 Aug 2024 22:02 S
[2024-08-28] MEDS: sodium chloride 0.9% 1,000 ML 125 ML IV (10:02)
[2024-08-28 10:45] LABS: Thyroid Stimulating Hormone 1.08 uIU/mL (0.27-4.20); Uric Acid 10.3 mg/dL (3.4-7.0)
[2024-08-28] MEDS: sodium polystyrene sulfonate 15 gm/60 mL Btl 30 GM PO (11:13)
[2024-08-28] MEDS: lactated ringers 500 ML 999 ML IV (11:13)
[2024-08-28 11:15] LABS: Alanine Aminotransferase 6 U/L (0-41); Albumin Level 3.6 g/dL (3.5-5.2); Alkaline Phosphatase 44 U/L (40-130); Anion Gap 21.4 (5-19); Aspartate Amino Transferase 9 U/L (0-40); Carbon Dioxide 16 mmol/L (22-29); Chloride 102 mmol/L (98-107); Creatinine Clr Calc Pharmacy 22.6422; Globulin 2.8 g/dL (1.3-4.6); Glucose 96 mg/dL (65-115); Osmolality Calculated 307 mOsm/kg (285-295); Potassium 5.4 mmol/L (3.5-5.1); Sodium 134 mmol/L (136-145); Total Bilirubin 0.3 mg/dL (0.15-1.2); Total Protein 6.4 g/dL (6.6-8.7)
[2024-08-28] MEDS: lactated ringers 1,000 ML 100 ML IV ×2 (11:15→21:14)
[2024-08-28 11:20] LABS: Blood Urea Nitrogen 93 mg/dL (6-20)
[2024-08-28 11:28] LABS: Hepatitis C Virus Antibody Non-Reactive (Nonreactive)
--- NOTE | 2024-08-28 11:49 | PM.HP ---
Providers/Chief Complaint Admitting Physician: Jose Miguel Coy Chief Complaint: syncope History of Present Illness Dangelo Main is a 59 year old male with a history of congestive heart failure, chronic kidney disease, and prior pneumonia presents after experiencing episodes of lightheadedness and blacking out, resulting in falls. The patient reports that these episodes occurred last night after waking from a nap and sitting on the edge of the bed to have a cigarette. The patient was found to have very low blood pressure and was started on pressor medications in the hospital. The patient also reports a history of fluctuating potassium levels, previously managed with potassium supplements, and notes recent high potassium levels. The patient has a history of taking Losartan and other medications for blood pressure and heart failure, with recent medication adjustments due to fluctuating potassium and blood pressure. The patient describes poor oral intake, with minimal food consumption over the past week, and reports recent diarrhea, possibly related to recent antibiotic use for a skin infection with ulcers or fistulas in the groin area. The patient denies fever, chills, vomiting, or recent alcohol or coffee intake. The patient has a long history of smoking, now reduced to three-quarters of a pack per day, and has recently stopped drinking large amounts of Pepsi. The patient expresses concern about medication side effects, particularly statins, which previously caused severe muscle pain and were discontinued. The patient also reports a history of shingles at age [age], measles, and chickenpox before age [age]. There is mention of a past heart murmur that has not been detected in recent years. The patient is concerned about medication management and requests further education about their medications. The patient wears protective undergarments due to skin ulcers and occasional diarrhea. The patient is being evaluated for possible dehydration, hypotension, and worsening kidney function. The patient is open to resuscitation unless there is severe neurological impairment. Review of Systems Const: Denies: fever(s), chills, body aches or malaise ENMT: Denies: throat pain Card: Reports: lightheadedness and syncope; Denies: chest pain, edema or dyspnea on exertion Resp: Denies: dyspnea, productive cough, change in phlegm color or hemoptysis GI: Reports: diarrhea; Denies: abdominal pain, nausea, vomiting, constipation, hematochezia or melena : Denies: flank pain, difficulty urinating, urinary frequency or hematuria Musc: Denies: back pain, joint swelling or joint redness Skin/Breast: Reports: other (Groin lesions/carbuncles for which he received an antibiotic) Neuro: Denies: headache(s) or confusion Medications/Allergies Home Medications ?Medication ?Instructions ?Recorded ?Confirmed ?Last Taken ?Type bumetanide 1 mg tablet 1 mg PO BID 08/28/24 08/28/24 08/27/24 History carvedilol 6.25 mg tablet 6.25 mg PO BID 08/28/24 08/28/24 08/27/24 History gemfibrozil 600 mg tablet 600 mg PO BID 08/28/24 08/28/24 Unknown History hydralazine 25 mg tablet See Rx Instructions .Route .COMPLEX 08/28/24 08/28/24 Unknown History losartan 100 mg tablet 100 mg PO DAILY 08/28/24 08/28/24 08/27/24 History potassium gluconate 600 mg (99 mg) 600 mg PO BID 08/28/24 08/28/24 08/27/24 History tablet spironolactone 25 mg tablet 25 mg PO DAILY 08/28/24 08/28/24 08/27/24 History Allergies Allergy/AdvReac Type Severity Reaction Status Date / Time acetaminophen (From Vicodin) Allergy Unknown Verified 08/28/24 00:13 fentanyl Allergy Unknown Verified 08/28/24 00:13 hydrocodone (From Vicodin) Allergy Unknown Verified 08/28/24 00:13 lisinopril Allergy ALGY-Difficulty Verified 08/28/24 00:13 Swallowing PFSH Acute PFSH: Medical History (Updated 08/28/24 @ 12:46 by Jose Miguel Coy MD) CKD (chronic kidney disease) CHF (congestive heart failure) Social History (Updated 08/28/24 @ 12:36 by Jose Miguel Coy MD) Smoking and tobacco/nicotine status: current every day tobacco/nicotine user Alcohol intake: never Substance/Drug Use: never Household members: significant other Vitals/I&O/Wt Last Vital Signs Temp 97.7 F 08/27/24 23:45 Pulse 88 08/28/24 10:22 Resp 22 H 08/28/24 05:58 BP 103/62 08/28/24 08:39 Pulse Ox 98 08/28/24 10:22 O2 Del Method Room Air 08/28/24 10:36 08/27/24 08/28/24 08/28/24 22:59 06:59 14:59 Intake Total 1320.347 / 0949.828 0901.948 / 3216.948 Balance 1320.347 / 3159.592 9001.948 / 3216.948 Weight last 48 hrs Weight 88.904 kg Weight 88.541 kg Physical Exam Const: COMMON NORMALS: patient oriented x3 and alert GENERAL APPEARANCE: cooperative ORIENTATION/CONSCIOUSNESS: Yes awake HENMT: COMMON NORMALS: oropharynx normal Neck/C-Spine: COMMON NORMALS: no JVD Resp: COMMON NORMALS: normal respiratory effort and clear to auscultation bilaterally AUSCULTATION: clear to auscultation bilaterally Cardio: COMMON NORMALS: no JVD, regular rhythm, S1 normal heart sound present, S2 normal heart sound present and No murmurs present (Cardio) RHYTHM: regular rhythm HEART SOUNDS: S1 normal heart sound present and S2 normal heart sound present GI: COMMON NORMALS: Normal to inspection, nondistended, normoactive bowel sounds present, Soft to palpation and non-tender PALPATION: Yes Soft to palpation Extremity: COMMON NORMALS: no joint enlargement and no pedal edema Neuro: COMMON NORMALS: patient oriented x3 and moves all extremities SENSORIUM/ORIENTATION: Yes alert Data 08/28/24 00:04 08/28/24 10:24 Micro: Microbiology 08/28/24 10:24 Blood Culture - Preliminary Blood SPECIMEN COLLECTED 08/28/24 10:24 Blood Culture - Preliminary Blood SPECIMEN COLLECTED A&P Assessment and plan (1) Shock: Hypotension and syncope : The patient experienced episodes of lightheadedness and blacking out, resulting in falls. Found to have very low blood pressure requiring pressor. Possible contributing factors include poor oral intake, dehydration, and medication effects (e.g., Losartan, Carvedilol, Spironolactone). In the setting of KILO on CKD. Reviewed vitals, CBC, CMP, troponin, UA, UDS, EKG, chest x-ray, CT abdomen pelvis, ER protocol, discussed with ER provider, nephrology note. - Monitor blood pressure closely. - Hold or adjust antihypertensive medications including bumetanide, carvedilol, losartan, spironolactone - Check stool for possible C. difficile colitis with diarrhea and recent antibiotics - Continue pressors. Titrated down to 6 mcg/min. Wean down as tolerated. - Obtain echocardiogram to assess cardiac function. (2) Hyperkalemia: Discussed with him potassium was high at 7.4 on presentation, severe hyperkalemia, KILO on CKD. Shock. He is continue taking all his home medications. Recent poor oral intake and dehydration. Hold losartan, spironolactone, potassium supplement. Received fluid boluses, sodium bicarb, albuterol, calcium gluconate, insulin and dextrose, Kayexalate. Follow-up potassium level. (3) KILO (acute kidney injury): KILO on CKD Creatinine 3.9 with severe hyperkalemia, metabolic acidosis, hypomagnesemia. With recent poor oral intake, dehydration, diarrhea, hypovolemia, shock, possible contribution also with antihypertensives, diuretic which she continued taking. Reassess renal function. Monitor for possible ATN. Monitor intake and output. Appreciate nephrology consultation. Concern for also possible progression of CKD. (4) Diarrhea: Diarrhea after recent antibiotics for carbuncles in the groin. Check for C. difficile. Plan History of CHF: Follow-up TTE. Monitor for risk of fluid overload. Smoking: Discussed medical cessation for 3 and half minutes. He has been cutting down and has cut down to about three quarters of a pack from several packs a day. Encouraged continued cessation. Continue nicotine patch. Add lozenges as needed. PDMP PDMP Reviewed: Not Reviewed Attestations Medical Necessity Statement*: Admission over 2 midnights anticipated for assessment management of shock, KILO on CKD, severe hyperkalemia. Coding Level of Care Code Critical Care >/= 30 minutes Critical care time (in minutes): 40 The high probability of a clinically significant, sudden or life threatening deterioration, as referenced in this documentation, required my full and direct attention, intervention and personal management. The critical care time shown is in addition to time spent performing any reported separately billable procedures and includes the following: [x] Data and vital sign review and interpretation [x] Patient assessment, examination and intervention [x] Medication orders and management [x] Patient/Family updates as able [x] Care Coordination and Documentation. Diagnoses Shock R57.9 Hyperkalemia E87.5 KILO (acute kidney injury) N17.9 Diarrhea R19.7
[2024-08-28 14:34] LABS: Glucose Point of Care 113 mg/dL (70-110)
[2024-08-28 18:42] LABS: C.Diff PCR (Lab) NEGATIVE (Negative)
[2024-08-28 20:29] LABS: Potassium, Radom Urine 34 mmol/L; Urine Random Chloride 27 mmol/L; Urine Random Sodium 24 mmol/L
[2024-08-28 20:32] LABS: Urine Protein Random 30 mg/dL
[2024-08-29] VITALS (67 sets, daily range): BP systolic 82–134; BP diastolic 48–78; PULSE 54–90; RESP 12–24; TEMP 36.6–36.8; O2SAT 93–99
[2024-08-29 03:13] LABS: Basophils % 0.9 %; Eosinophils # 0.1 10^3/uL (0.0-0.8); Eosinophils % 1.1 %; Hematocrit 25.3 % (37-53); Lymphocytes # 1.1 10^3/uL (0.8-4.8); Lymphocytes % 24.2 %; Mean Corpuscular HGB Conc 33.6 g/dL (30-55); Mean Corpuscular Hemoglobin 29.5 pg (27-33); Mean Corpuscular Volume 87.8 fl (82-101); Mean Platelet Volume 9.7 fL (7.4-10.4); Monocytes # 0.3 10^3/uL (0.2-0.9); Monocytes % 7.7 %; Neutrophils # 2.91 10^3/uL (1.8-7.7); Neutrophils % 65.6 %; Nucleated Red Blood Cells % 0 %; Platelet Count 139 10^3/cmm (157-399); Red Blood Count 2.88 10^6/uL (3.85-5.65); Red Cell Distribution Width 14.7 % (12.1-15.1); White Blood Count 4.43 10^3/uL (3.29-11.43)
[2024-08-29 03:35] LABS: Alanine Aminotransferase 7 U/L (0-41); Albumin Level 3.3 g/dL (3.5-5.2); Alkaline Phosphatase 41 U/L (40-130); Anion Gap 19.9 (5-19); Aspartate Amino Transferase 10 U/L (0-40); Blood Urea Nitrogen 64 mg/dL (6-20); Calcium 8.7 mg/dL (8.5-10.5); Carbon Dioxide 17 mmol/L (22-29); Chloride 105 mmol/L (98-107); Creatinine Clr Calc Pharmacy 33.9633; Ferritin 580 ng/mL (30-400); Globulin 2.6 g/dL (1.3-4.6); Glomerular Filtration Rate 25.6 mL/min (90-130); Glucose 93 mg/dL (65-115); Iron 48 ug/dL (59-158); Osmolality Calculated 302 mOsm/kg (285-295); Percent Saturation 25.6 % (20-50); Phosphorus 3.2 mg/dL (2.5-4.5); Potassium 4.9 mmol/L (3.5-5.1); Sodium 137 mmol/L (136-145); Total Bilirubin 0.3 mg/dL (0.15-1.2); Total Iron Binding Capacity 187 mcg/dl; Total Protein 5.9 g/dL (6.6-8.7); Unsaturated Iron Binding 139 ug/dL (112-347)
[2024-08-29 03:36] LABS: Calcium 8.7 mg/dL (8.5-10.5)
[2024-08-29 03:41] LABS: Parathyroid Hormone 129.5 pg/mL (15-65)
[2024-08-29 03:49] LABS: 25 Hydroxy Vitamin D 6 ng/mL (30-100)
[2024-08-29 05:25] LABS: PROTEIN, TOTAL 6.2 g/dL (6.1-8.1)
[2024-08-29] MEDS: lactated ringers 1,000 ML 100 ML IV ×2 (07:22→17:07)
[2024-08-29 08:30] LABS: Anti-Double Strand DNA AB <1 IU/mL
[2024-08-29] MEDS: nicotine 21 mg Patch 1 PATCH TRANSDERMA (09:31)
[2024-08-29 11:39] LABS: KAPPA LIGHT CHAIN, FREE, SERUM 27.8 mg/L (3.3-19.4); KAPPA/LAMBDA LIGHT CHAINS FREE 1.05 (0.26-1.65); LAMBDA LIGHT CHAIN, FREE, SERU 26.4 mg/L (5.7-26.3)
[2024-08-29] MEDS: acetaminophen 325 mg Tablet 650 MG PO ×2 (11:51→19:00)
--- NOTE | 2024-08-29 13:19 | P.PN_ITS ---
Subjective 2 Subjective: no new c/o Medications: Reviewed: Yes Vitals/I&O/Wt Last Vital Signs Temp 98.3 F 08/29/24 08:00 Pulse 72 08/29/24 12:00 Resp 14 08/29/24 12:00 BP 129/78 08/29/24 12:00 Pulse Ox 99 08/29/24 12:00 O2 Del Method Room Air 08/29/24 12:00 08/28/24 08/29/24 08/29/24 22:59 06:59 14:59 Intake Total 1129.833 / 4897.406 548.125 / 5445.531 1120 / 1120 Output Total 3000 / 4000 400 / 4400 Balance -1870.167 / 897.406 148.125 / 6362.448 9178 / 1120 Weight last 48 hrs Weight 100.5 kg Weight 88.904 kg Weight 88.541 kg Physical Exam 2 Narrative: Patient is hemodynamically stable no apparent distress in bed on pressors. HEENT normocephalic/atraumatic. Neck is supple no JVP Lungs clear to auscultation. Heart regular no rubs or gallops. Abdomen soft positive bowel sounds extremities have no edema neurologically awake alert oriented x 3. Data 08/29/24 02:53 08/29/24 02:53 Micro: Microbiology 08/28/24 10:24 Blood Culture - Preliminary Blood NEGATIVE TO DATE 08/28/24 10:24 Blood Culture - Preliminary Blood NEGATIVE TO DATE A&P Assessment and plan (1) KILO (acute kidney injury): 59-year-old man with some degree of heart failure with home was on humidity spironolactone losartan and potassium. Patient presented after falling and having lethargy. The patient is being evaluated for cardiogenic versus septic shock or mixed picture. 1. Acute kidney injury : Cr improving CT scan had normal kidneys. No stones noted. No hydronephrosis. Urinalysis was cloudy 1+ protein trace leuk esterase 3-5 RBCs, urine squamous epithelial cells 11-20 hyaline casts 0.46. suspect underlying CKD , will check basic serologies. Will check an SPEP and serum immunofixation. The patient is using NSAIDs however not that often. 2. Hyponatremia likely from overdiuresis. Check urine electrolites and s/p IVFs , Na improved Check TSH and cortisol level 3. Hyperkalemia likely from acute kidney injury taking potassium and losartan. His metabolic acidosis. 4. Increased anion gap metabolic acidosis, monitor No ketones in urine. Normal lactic acid. Glucose 136 unlikely to be DKA. Patient was not on an SGLT2 inhibitor as far as we know. Urine tox negative. 5,Anemia . Patient was seen and examined with the aid of a nurse using audiovisual equipment. The patient consented to telehealth. Plan See above. PDMP PDMP Reviewed: Not Reviewed Attestations 2 Medical Necessity Statement*: per kimberli Coding Level of Care Code Acute Code for [facility] Diagnoses KILO (acute kidney injury) N17.9
--- NOTE | 2024-08-29 13:38 | P.PN_ITS ---
Vitals/I&O/Wt Last Vital Signs Temp 98.3 F 08/29/24 08:00 Pulse 61 08/29/24 13:30 Resp 12 08/29/24 13:30 BP 121/59 08/29/24 13:30 Pulse Ox 97 08/29/24 13:30 O2 Del Method Room Air 08/29/24 13:30 08/28/24 08/29/24 08/29/24 22:59 06:59 14:59 Intake Total 1129.833 / 4897.406 548.125 / 5445.531 1120 / 1120 Output Total 3000 / 4000 400 / 4400 Balance -1870.167 / 897.406 148.125 / 9086.224 8193 / 1120 Weight last 48 hrs Weight 100.5 kg Weight 88.904 kg Weight 88.541 kg Physical Exam 2 Const: COMMON NORMALS: patient oriented x3 and alert GENERAL APPEARANCE: c ooperative ORIENTATION/CONSCIOUSNESS: Yes awake HENMT: COMMON NORMALS: oropharynx normal Neck/C-Spine: COMMON NORMALS: no JVD Resp: COMMON NORMALS: normal respiratory effort and clear to auscultation bilaterally AUSCULTATION: clear to auscultation bilaterally Cardio: COMMON NORMALS: no JVD, regular rhythm, S1 normal heart sound present, S2 normal heart sound present and No murmurs present (Cardio) RHYTHM: regular rhythm HEART SOUNDS: S1 normal heart sound present and S2 normal heart sound present GI: COMMON NORMALS: Normal to inspection, nondistended, normoactive bowel sounds present, Soft to palpation and non-tender PALPATION: Yes Soft to palpation : OTHER: Small nodules with tenderness but without erythema of the nodules or surrounding area, without significant swelling, no fluctuance, some with open pores, without drainage or bleeding. Extremity: COMMON NORMALS: no joint enlargement and no pedal edema Neuro: COMMON NORMALS: patient oriented x3 and moves all extremities S ENSORIUM/ORIENTATION: Yes alert Data 08/29/24 02:53 08/29/24 02:53 Micro: Microbiology 08/28/24 10:24 Blood Culture - Preliminary Blood NEGATIVE TO DATE 08/28/24 10:24 Blood Culture - Preliminary Blood NEGATIVE TO DATE A&P Assessment and plan (1) KILO (acute kidney injury): KILO on CKD reviewed chemistry, intake and output, nephrology note. Noted improving KILO. Reassess renal function. Discussed with him and his in detail regarding his medications, avoiding ibuprofen and other NSAIDs due to risk to his kidneys with underlying CKD. Monitoring blood pressure, avoiding taking hypertensives in case of low blood pressures. Caution with potassium sparing medications and supplements. Discussed with them will need to establish with a split leather department supervisor. Continue with IV fluid per nephrology. Monitor for risk of fluid overload with history of CHF. Reassess volume status. Discussed with nursing, complex case manager. (2) Shock: Shock so far resolved soft morning but continues to improve.. Weaned off pressor. Blood pressure holding antihypertensives. Went over in detail the names and function of his medications with him and his , risks including hypotension, hyperkalemia, hypovolemia. Discontinue pressors. Transfer out of ICU. Reassess KILO. The patient experienced episodes of lightheadedness and blacking out, resulting in falls. Found to have very low blood pressure requiring pressor. Possible contributing factors include poor oral intake, dehydration, and medication effects (e.g., Losartan, Carvedilol, Spironolactone). In the setting of KILO on CKD. Reviewed vitals, CBC, CMP, C. difficile. C. difficile noted negative. - Monitor blood pressure closely. - Hold or adjust antihypertensive medications including bumetanide, carvedilol, losartan, spironolactone Reviewed echocardiogram with him and his . (3) Hyperkalemia: Resolved with treatment. Follow-up chemistry. Discussed with him potassium was high at 7.4 on presentation, severe hyperkalemia, KILO on CKD. Shock. He is continue taking all his home medications. Recent poor oral intake and dehydration. Hold losartan, spironolactone, potassium supplement. Received fluid boluses, sodium bicarb, albuterol, calcium gluconate, insulin and dextrose, Kayexalate. Follow-up potassium level. (4) Diarrhea: Diarrhea after recent antibiotics for carbuncles in the groin. Negative C. difficile. Plan Severe caries and periodontal disease: With tooth pain of second right lower premolar which is almost entirely eroded, with some surrounding swelling, without significant erythema, no active bleeding or discharge. Discussed with him and his need for follow-up with a dental specialist and extraction of multiple eroded teeth including the one currently painful. Requesting CT, noncontrast due to renal dysfunction, to assess for any obvious dental abscess. As per further discussion with him starting antibiotic with amoxicillin, Flagyl. Monitor for risk of C. difficile, SJS. Recurrent testicular carbuncles: Appears to have hidradenitis suppurativa. Previously reports having some superimposed infection, currently without evidence of cellulitis. Had previously seen a surgeon who had recommended to follow-up with dermatology. I agree with recommendation with follow-up with dermatology and will provide referral. Discussed to avoid powders which may clog up pores and cause maceration worsening symptoms. Keep the area clean and dry to the best ability. History of CHF: Reviewed TTE. Monitor for risk of fluid overload. Smoking: Continue to replacement. Continue to encourage cessation. PDMP PDMP Reviewed: Not Reviewed Attestations 2 Medical Necessity Statement*: Continue admission for assessment and management of KILO following shock secondary to hypovolemia, antihypertensive toxicity. and High MDM includes amount and/or complexity of data reviewed/ordered [ previous or external records, resulted lab(s)/test(s), ordered lab(s)/test(s) and other healthcare professional discussion] and described risk of complication, morbidity or mortality of management as documented Diagnoses IKLO (acute kidney injury) N17.9 Shock R57.9 Hyperkalemia E87.5 Diarrhea R19.7
--- NOTE | 2024-08-29 13:45 | CTR_ITS ---
PROCEDURE INFORMATION: Exam: CT Maxillofacial Without Contrast Exam date and time: 08/29/2024 4:06 PM Age: 59 years old Clinical indication: Pain; Other: Abscess; Additional info: Assess for any obvious periodontal abscess TECHNIQUE: Imaging protocol: Computed tomography of the face without contrast. Radiation optimization: All CT scans at this facility use at least one of these dose optimization techniques: automated exposure control; mA and/or kV adjustment per patient size (includes targeted exams where dose is matched to clinical indication); or iterative reconstruction. COMPARISON: No relevant prior studies available. RADIATION DOSE METRICS: Total DLP (mGy-cm): 664.18 FINDINGS: Paranasal sinuses: No air-fluid levels. Orbital cavities: Orbits are normal. Globes are unremarkable. Teeth: Several periapical lucencies in the mandibular teeth including the 1st bicuspids bilaterally with cortical breakthrough and inflammatory changes within the adjacent subcutaneous tissues. No definable fluid collection/drainable abscess is seen. Bones: No acute fracture. Soft tissues: Simple appearing cystic structure in the left cheek measuring 2.[address]/CT facial bones wo con* [id number] IMPRESSION: 1. Periodontal disease with periodontal cellulitis along the frontal/right frontal lateral aspect of the jaw, no definable fluid collection/drainable abscess is appreciated on exam. 2. 2.4 cm simple appearing cystic structure in the left cheek.
[2024-08-29] MEDS: metroNIDAZOLE 250 mg Tablet PO ×2 (15:16→20:41)
[2024-08-29 15:27] LABS: Creatinine Urine, Random 55 mg/dL (39-259); Microalbumin Random Urine 3 ug/dL (0-20)
[2024-08-29 15:28] LABS: Microalbum Creatinine Ratio Ur 55 mg/dL (0-20)
--- NOTE | 2024-08-29 21:35 | PC.NURSE ---
[facility] Called Dr Snyder to notify her of patient's soft MAPs and levophed order being discontinued. Patient's MAPs ranging from 62-65 without levophed. Patient was previously on 1 mcg of levophed before the order was discontinued. Dr Snyder gave orders to monitor blood pressure and to alert her if MAP falls below 60.
[2024-08-30] VITALS (29 sets, daily range): BP systolic 99–132; BP diastolic 55–87; PULSE 52–99; RESP 6–22; TEMP 36.4–36.9; O2SAT 96–100
[2024-08-30] MEDS: acetaminophen 325 mg Tablet 650 MG PO ×3 (01:00→13:41)
[2024-08-30] MEDS: lactated ringers 1,000 ML 100 ML IV (03:24)
[2024-08-30 05:17] LABS: Basophils % 0.9 %; Eosinophils # 0.1 10^3/uL (0.0-0.8); Eosinophils % 2.7 %; Hematocrit 25.5 % (37-53); Lymphocytes # 1.2 10^3/uL (0.8-4.8); Lymphocytes % 27.9 %; Mean Corpuscular HGB Conc 32.9 g/dL (30-55); Mean Corpuscular Hemoglobin 29.6 pg (27-33); Mean Corpuscular Volume 89.8 fl (82-101); Mean Platelet Volume 9.2 fL (7.4-10.4); Monocytes # 0.3 10^3/uL (0.2-0.9); Monocytes % 6.3 %; Neutrophils # 2.76 10^3/uL (1.8-7.7); Nucleated Red Blood Cells % 0 %; Platelet Count 125 10^3/cmm (157-399); Red Blood Count 2.84 10^6/uL (3.85-5.65); White Blood Count 4.45 10^3/uL (3.29-11.43)
[2024-08-30 05:36] LABS: Magnesium 1.6 mg/dL (1.7-2.3); Phosphorus 2.5 mg/dL (2.5-4.5)
[2024-08-30] MEDS: nicotine 21 mg Patch 1 PATCH TRANSDERMA (08:20)
[2024-08-30] MEDS: metroNIDAZOLE 250 mg Tablet PO (08:21)
[2024-08-30] MEDS: magnesium sulfate premix 2 GM/50 ML PIGGYBACK IV (08:25)
[2024-08-30 08:35] LABS: Anion Gap 16.1 (5-19); Blood Urea Nitrogen 33 mg/dL (6-20); Calcium 8.6 mg/dL (8.5-10.5); Carbon Dioxide 19 mmol/L (22-29); Chloride 109 mmol/L (98-107); Creatinine Clr Calc Pharmacy 48.1274; Glomerular Filtration Rate 36.7 mL/min (90-130); Glucose 92 mg/dL (65-115); Osmolality Calculated 295 mOsm/kg (285-295); Potassium 5.1 mmol/L (3.5-5.1); Sodium 139 mmol/L (136-145)
[2024-08-30 08:40] LABS: ALBUMIN 3.7 g/dL (3.8-4.8); ALPHA 1 GLOBULIN 0.3 g/dL (0.2-0.3); ALPHA 2 GLOBULIN 0.7 g/dL (0.5-0.9); BETA 1 GLOBULIN 0.3 g/dL (0.4-0.6); BETA 2 GLOBULIN 0.4 g/dL (0.2-0.5); GAMMA GLOBULIN 0.8 g/dL (0.8-1.7)
--- NOTE | 2024-08-30 10:36 | PM.DCS ---
Discharge Providers Date of Admission: 08/28/24 07:48 Date of Discharge: August 30, 2024 Attending Provider at Admission: Jose Miguel Coy Attending Provider at Discharge: Jose Miguel Coy Diagnoses at Discharge Discharge Diagnosis (1) KILO (acute kidney injury): Status: Acute (2) Shock: Status: Acute (3) Hyperkalemia: Status: Acute (4) Diarrhea: Status: Acute Reason for Visit Reason for Visit: syncope Brief History: Dangelo Main is a 59 year old male with a history of congestive heart failure, chronic kidney disease, and prior pneumonia presents after experiencing episodes of lightheadedness and blacking out, resulting in falls. The patient reports that these episodes occurred last night after waking from a nap and sitting on the edge of the bed to have a cigarette. The patient was found to have very low blood pressure and was started on pressor medications in the hospital. The patient also reports a history of fluctuating potassium levels, previously managed with potassium supplements, and notes recent high potassium levels. The patient has a history of taking Losartan and other medications for blood pressure and heart failure, with recent medication adjustments due to fluctuating potassium and blood pressure. The patient describes poor oral intake, with minimal food consumption over the past week, and reports recent diarrhea, possibly related to recent antibiotic use for a skin infection with ulcers or fistulas in the groin area. The patient denies fever, chills, vomiting, or recent alcohol or coffee intake. The patient has a long history of smoking, now reduced to three-quarters of a pack per day, and has recently stopped drinking large amounts of Pepsi. The patient expresses concern about medication side effects, particularly statins, which previously caused severe muscle pain and were discontinued. The patient also reports a history of shingles at age [age], measles, and chickenpox before age [age]. There is mention of a past heart murmur that has not been detected in recent years. The patient is concerned about medication management and requests further education about their medications. The patient wears protective undergarments due to skin ulcers and occasional diarrhea. The patient is being evaluated for possible dehydration, hypotension, and worsening kidney function. The patient is open to resuscitation unless there is severe neurological impairment. Hospital Course Hospital Course He was admitted and continued on pressor support, with fluid resuscitation for shock, suspected hypovolemic secondary to diarrhea, dehydration with diuretics, as well as possibly toxic effect of antihypertensives which she had continued to take. Antihypertensive medications were held including his carvedilol, losartan, spironolactone. Monitor telemetry. Received additional treatment for severe hyperkalemia including with Kayexalate. He was assessed by nephrology. Renal function reassessed, continue to produce urine, renal function gradually improving. He has been taking ibuprofen intermittently for musculoskeletal pain as well as intermittent dental pain. Discussed with him and his life partner to discontinue ibuprofen and avoid any NSAIDs with underlying renal disease. Discussed with him and his life partner also to closely monitor blood pressures and avoid taking antihypertensives in case of low blood pressures to avoid shock and kidney injury. Shock gradually resolving was able to wean off pressors. Hyperkalemia on reassessment resolved. CHF without exacerbation. During his position he also complained of dental pain, gum pain in his lower jaw around 2nd premolar bilaterally worse on the right. CT was obtained which showed peritonsillar disease with periductal cellulitis frontal/right frontal lateral aspect of the jaw without definite collection to suggest an abscess. Incidentally noted 2.4 cm simple appearing cyst in the left cheek. He is started on amoxicillin and metronidazole and knows to follow-up with dentistry for extraction of multiple residual broken teeth with surrounding periodontitis. No active infection or cellulitis is noted in the area of recurrent nodules on his scrotum intermittently draining from daily bleeding, he is referred for additional assessment to dermatology with suspicion of hidradenitis suppurativa. Due to hospitalization his diarrhea resolved, testing for C. difficile was negative. He will be establishing for continued primary care in [place]. He is also referred for follow-up with nephrology after KILO on CKD. He is encouraged to continue to work on smoking cessation which has been difficult for him in part due to his life partner smoking as well. Physical Exam Const: COMMON NORMALS: patient oriented x3 and alert GENERAL APPEARANCE: cooperative ORIENTATION/CONSCIOUSNESS: Yes awake HENMT: COMMON NORMALS: oropharynx normal Neck/C-Spine: COMMON NORMALS: no JVD Resp: COMMON NORMALS: normal respiratory effort and clear to auscultation bilaterally AUSCULTATION: clear to auscultation bilaterally Cardio: COMMON NORMALS: no JVD, regular rhythm, S1 normal heart sound present, S2 normal heart sound present and No murmurs present (Cardio) RHYTHM: regular rhythm HEART SOUNDS: S1 normal heart sound present and S2 normal heart sound present GI: COMMON NORMALS: Normal to inspection, nondistended, normoactive bowel sounds present, Soft to palpation and non-tender PALPATION: Yes Soft to palpation Extremity: COMMON NORMALS: no joint enlargement and no pedal edema Neuro: COMMON NORMALS: patient oriented x3 and moves all extremities SENSORIUM/ORIENTATION: Yes alert Skin: COMMON NORMALS: no rashes or lesions noted GENERAL SKIN EXAM: no rashes or lesions noted Discharge Data Studies Completed and Pending Completed Studies During Hospitalization Category Date Time Status CT abdomen pelvis wo con [id number] Stat Cat Scan 08/28/24 02:[address] facial bones wo con* [id number] Routine Cat Scan 08/29/24 13:45 Completed XR chest 1V portable [id number] Stat Exams 08/28/24 00:22 Completed CV. echo complete* [id number] Routine Ultrasound 08/28/24 10:00 Completed Pending at discharge Category Date Time Status MARVEL Screen w/ Reflex Routine Lab 08/28/24 10:24 Received Blood Culture Stat Lab 08/28/24 10:24 Results Complete Blood Count w/Auto AM LABS Lab 08/31/24 04:00 Ordered Immunofixation (MARIA ALEJANDRA), Urine Routine Lab 08/29/24 14:00 Received Immunofixation Serum Stat Lab 08/28/24 10:24 Received [place] Free Light Chains Urine Stat Lab 08/29/24 14:00 Received Magnesium AM LABS Lab 08/31/24 04:00 Ordered Phosphorus AM LABS Lab 08/31/24 04:00 Ordered Protein Total and Electrophores UR24 MARIA ALEJANDRA [Protein Lab 08/29/24 14:00 Received Electr UR24 with MARIA ALEJANDRA] Routine Radiology Impressions Chest X-Ray 08/28/24 00:22 IMPRESSION: No acute findings. Abdomen/Pelvis CT 08/28/24 02:17 IMPRESSION: No evidence of acute abdominal or pelvic process. Face CT 08/29/24 13:45 IMPRESSION: 1. Periodontal disease with periodontal cellulitis along the frontal/right frontal lateral aspect of the jaw, no definable fluid collection/drainable abscess is appreciated on exam. 2. 2.4 cm simple appearing cystic structure in the left cheek. Laboratory Results WBC 4.45 10^3/uL (3.29-11.43) 08/30/24 05:09 RBC 2.84 10^6/uL (3.85-5.65) L 08/30/24 05:09 Hgb 8.40 g/dL (11.27-16.99) L 08/30/24 05:09 Hct 25.5 % (37-53) L 08/30/24 05:09 MCV 89.8 fl (82-101) 08/30/24 05:09 MCH 29.6 pg (27-33) 08/30/24 05:09 MCHC 32.9 g/dL (30-55) 08/30/24 05:09 RDW 15.0 % (12.1-15.1) 08/30/24 05:09 Plt Count 125 10^3/cmm (157-399) L 08/30/24 05:09 MPV 9.2 fL (7.4-10.4) 08/30/24 05:09 Neut % (Auto) 62.0 % 08/30/24 05:09 Lymph % (Auto) 27.9 % 08/30/24 05:09 [place] % (Auto) 6.3 % 08/30/24 05:09 Eos % (Auto) 2.7 % 08/30/24 05:09 Baso % (Auto) 0.9 % 08/30/24 05:09 Neut # (Auto) 2.76 10^3/uL (1.8-7.7) 08/30/24 05:09 Lymph # (Auto) 1.2 10^3/uL (0.8-4.8) 08/30/24 05:09 [place] # (Auto) 0.3 10^3/uL (0.2-0.9) 08/30/24 05:09 Eos # (Auto) 0.1 10^3/uL (0.0-0.8) 08/30/24 05:09 Baso # (Auto) 0.0 10^3/uL (0.0-0.1) 08/30/24 05:09 Nucleated RBC % (auto) 0 % 08/30/24 05:09 Nucleated RBCs # 0.0 /100WBC 08/30/24 05:09 Sodium 139 mmol/L (136-145) 08/30/24 05:09 Potassium 5.1 mmol/L (3.5-5.1) 08/30/24 05:09 Chloride 109 mmol/L (98-107) H 08/30/24 05:09 Carbon Dioxide 19 mmol/L (22-29) L 08/30/24 05:09 Anion Gap 16.1 (5-19) 08/30/24 05:09 BUN 33 mg/dL (6-20) H 08/30/24 05:09 Creatinine 1.9 mg/dL (0.7-1.2) H 08/30/24 05:09 GFR Calculation 36.7 mL/min (90-130) L 08/30/24 05:09 Glucose 92 mg/dL (65-115) 08/30/24 05:09 POC Glucose 113 mg/dL (70-110) H 08/28/24 14:30 Calculated Osmolality 295 mOsm/kg (285-295) 08/30/24 05:09 Lactic Acid 0.9 mmol/L (0.5-2.2) 08/28/24 00:04 Uric Acid 10.3 mg/dL (3.4-7.0) H 08/28/24 05:52 Calcium 8.6 mg/dL (8.5-10.5) 08/30/24 05:09 Phosphorus 2.5 mg/dL (2.5-4.5) 08/30/24 05:09 Magnesium 1.6 mg/dL (1.7-2.3) L 08/30/24 05:09 Iron 48 ug/dL (59-158) L 08/29/24 02:53 TIBC 187 mcg/dl 08/29/24 02:53 % Saturation 25.6 % (20-50) 08/29/24 02:53 Unsat Iron Binding 139 ug/dL (112-347) 08/29/24 02:53 Ferritin 580 ng/mL (30-400) H 08/29/24 02:53 Total Bilirubin 0.3 mg/dL (0.15-1.2) 08/29/24 02:53 AST 10 U/L (0-40) 08/29/24 02:53 ALT 7 U/L (0-41) 08/29/24 02:53 Alkaline Phosphatase 41 U/L (40-130) 08/29/24 02:53 Creatine Kinase 40 U/L (39-308) 08/28/24 05:52 Troponin T Baseline 77 ng/L (0-15) H 08/28/24 00:04 Troponin T 120 Minute 62.44 ng/L (0-15) H 08/28/24 02:14 Delta Troponin T -14.56 ABS# (0-10) L 08/28/24 02:14 Troponin T Hi Sens 6Hr 61.82 ng/L (0-15) H 08/28/24 05:52 Troponin T Hi Sens 6Hr Delta -15.18 ng/L (0-12) L 08/28/24 05:52 Total Protein 5.9 g/dL (6.6-8.7) L 08/29/24 02:53 Albumin 3.3 g/dL (3.5-5.2) L 08/29/24 02:53 Globulin 2.6 g/dL (1.3-4.6) 08/29/24 02:53 Wszng-1-Pjrxfzzxr 0.3 g/dL (0.2-0.3) 08/28/24 10:24 Rrnkj-6-Ndtndyxxi 0.7 g/dL (0.5-0.9) 08/28/24 10:24 Djvf-7-Msaugsgs 0.3 g/dL (0.4-0.6) L 08/28/24 10:24 Lnzw-2-Ipfooxlt 0.4 g/dL (0.2-0.5) 08/28/24 10:24 Gamma Globulins 0.8 g/dL (0.8-1.7) 08/28/24 10:24 Abnorm Protein Band 1 Not Reportable 08/28/24 10:24 25-OH Vitamin D Total 6 ng/mL (30-100) L 08/29/24 02:53 TSH 1.08 uIU/mL (0.27-4.20) 08/28/24 05:52 PTH Intact 129.5 pg/mL (15-65) H 08/29/24 02:53 Calcium (PTH Intact) 8.7 mg/dL (8.5-10.5) 08/29/24 02:53 Random Cortisol 11.20 ug/dL (2.47-19.5) 08/28/24 10:24 Urine Color Yellow (Yellow) 08/28/24 01:27 Urine Appearance Cloudy (CLEAR) A 08/28/24 01:27 Urine pH 5.0 (5-7) 08/28/24 01:27 Ur Specific [place] 1.011 (1.005-1.030) 08/28/24 01:27 Urine Protein 1+ (Negative) A 08/28/24 01:27 Urine Glucose (UA) Negative (Normal) 08/28/24 01: Urine Ketones Negative (Negative) 08/28/24 01: Urine Blood Non-haemolysed trace (Negative) 08/28/24 01: Urine Nitrate Negative (Negative) 08/28/24 01: Urine Bilirubin Negative (Negative) 08/28/24 01: Urine Urobilinogen 0.2 mg/dL (Negative) 08/28/24 01:27 Ur Leukocyte Esterase Trace (Negative) A 08/28/24 01:27 Urine RBC 3-5 /hpf (0-2) 08/28/24 01:27 Urine WBC 0-5 /hpf (0-5) 08/28/24 01:27 Ur Squamous Epith Cells 11-20 /hpf (0-5) H 08/28/24 01:27 Amorphous Sediment Not Reportable 08/28/24 01:27 Urine Bacteria None seen /hpf (NONE) 08/28/24 01: Hyaline Casts 2.46 /lpf 08/28/24 01:27 Ur Random Microalbumin 3 ug/dL (0-20) 08/29/24 14:50 U Random Total Protein 30 mg/dL 08/28/24 01:27 Ur Random Sodium 24 mmol/L 08/28/24 01:27 Ur Random Potassium 34 mmol/L 08/28/24 01:27 Ur Random Chloride 27 mmol/L 08/28/24 01:27 Urine Creatinine 55 mg/dL (39-259) 08/29/24 14:50 Urine Creatinine Cancelled 08/29/24 14:50 Microalb/Creat Ratio 55 mg/dL (0-20) H 08/29/24 14:50 U Abnormal Prot Band 2 Not Reportable 08/28/24 10:24 U Abnormal Prot Band 3 Not Reportable 08/28/24 10:24 Urine Opiates Screen Negative ng/mL (Negative) 08/28/24 01:27 Ur Barbiturates Screen Negative ng/mL (Negative) 08/28/24 01:27 Ur Phencyclidine Scrn Negative ng/mL (Negative) 08/28/24 01:27 Ur Amphetamines Screen Negative ng/mL (Negative) 08/28/24 01:27 U Benzodiazepines Scrn Negative ng/mL (Negative) 08/28/24 01:27 Urine Cocaine Screen Negative ng/mL (Negative) 08/28/24 01:27 U Marijuana (THC) Screen Negative ng/mL (Negative) 08/28/24 01:27 Pro Electrophoresis Int See note 08/28/24 10:24 Anti-ds DNA IgG Ab <1 IU/mL 08/28/24 10:24 Free [place] Light Chains 27.8 mg/L (3.3-19.4) H 08/28/24 10:24 Free [place] Light Chain 26.4 mg/L (5.7-26.3) H 08/28/24 10:24 Free [place]/Lambda Ratio 1.05 (0.26-1.65) 08/28/24 10:24 C. difficile (PCR) Negative (Negative) 08/28/24 15:45 Hepatitis C Antibody Non-reactive (Nonreactive) 08/28/24 10:24 Vitals Last Vital Signs Temp 98.4 F 08/30/24 07:26 Pulse 64 08/30/24 07:26 Resp 15 08/30/24 07:26 BP 113/72 08/30/24 07:26 Pulse Ox 100 08/30/24 07:26 O2 Del Method Room Air 08/30/24 07:26 Discharge Plan Discharge Patient Disposition: Home Condition: Stable Prescriptions: New metronidazole 250 mg Tablet 250 mg PO TID Qty: 15 0RF nicotine 21 mg/24 hr Patch 24 Hour 1 patch transdermal DAILY Qty: 30 3RF amoxicillin 250 mg Capsule 250 mg PO TID Qty: 15 0RF nicotine (polacrilex) 4 mg Lozenge 4 mg mucous membrane Q4H PRN (Reason: Nicotine Cravings) Qty: 30 3RF Continued hydralazine 25 mg tablet See Rx Instructions .ROUTE .COMPLEX Rx Instructions: TAKE 1 TABLET BY MOUTH EVERY 12 HOURS NEEDED. CAN TAKE EXTRA TABLET IF SYSTOLIC BLOOD PRESSURE.160 MM HG gemfibrozil 600 mg tablet 600 mg PO BID Changed bumetanide 1 mg tablet 1 mg PO BID PRN (Reason: Edema) Qty: 1 0RF Rx Instructions: Change to as needed for edema Discontinued carvedilol 6.25 mg tablet 6.25 mg PO BID spironolactone 25 mg tablet 25 mg PO DAILY losartan 100 mg tablet 100 mg PO DAILY potassium gluconate 600 mg (99 mg) Tablet 600 mg PO BID Discharge Orders: Discharge Order (Routine); Ordered 08/30/24 Ordered By: Jose Miguel Coy Referrals: Pebbles Kebede DO [Physician, Dermatology] - 2 weeks Referral Note: Recurrent carbuncles, possible hydradenitis suppurativa This clinic will call Dangelo Main when discharged for this referral . Mary Kate Ulloa MD [Referring] - 2 weeks Referral Note: KILO on CKD [facility] will fax records to [facility] Dr.Kristie Ulloa for this referral for review ,and will call you for this follow up appointment in [facility] . We have notified your physician's clinic of the need for a follow-up appointment to be scheduled. If you have not heard from them within the next 2 business days, please call them directly. This referral will be reviewed may be greater than 2 buisness days up to 2 weeks or more Problems: KILO (acute kidney injury) [facility], [Staff Physician] - 09/05/24 11:00 am Referral Note: [employer] Nurse Jackie Kim this is a scheduled appointment Discharge Diet: As Directed and Cardiac Discharge Activity: Increase activity as tolerated Patient Instructions: Nicotine (Into the mouth) (Nicorette, Commit, [facility] Nicotine,..., Metronidazole (By mouth), Amoxicillin (By mouth), Nicotine (Absorbed through the skin) (Nicoderm CQ, Nicoderm CQ..., How to Stop Smoking (DC), How to Stop Smoking (GEN), Acute Kidney Injury (GEN), Cigarette Smoking and Your Health (GEN), Hyperkalemia (GEN), Hypotension (GEN), Periodontal Disease (GEN) Activity Restrictions/Additional Instructions: Continue to hold your medications as discussed, do not restart losartan, spironolactone, potassium supposition at this time yet. Limit potassium rich foods. Monitor blood pressure 2-3 times daily. Hold off on restarting carvedilol and hydralazine at this time unless your blood pressures are consistently rising above 130/90, at which point resume carvedilol first, then use hydralazine as backup as discussed in case blood pressure still not controlled. Hold off on restarting bumetanide at this time and use it only as needed in case of lower extremity edema or rapid weight gain of more than 3 pounds in 2 days. Follow-up with your primary doctor to reassess continued improvement from acute kidney injury, reassessment of elevated potassium levels which have been improving, and reassessment of blood pressures. Follow-up with nephrology for reassessment of chronic kidney disease. Please avoid ibuprofen and any other NSAIDs as discussed to reduce chance of additional injury to your kidneys. Follow-up with dermatology regarding recurrent carbuncles on the scrotum with possible hidradenitis suppurativa. Keep the area clean and as dry as possible. Avoid powders if possible which may clog pores and contribute to maceration. Follow-up with a dentist for reassessment of broken and missing teeth, extraction of residual teeth, as well as reassessment and management of periodontal disease and cellulitis. Complete antibiotic course. Continue your efforts to stop smoking. Use nicotine patch and/or lozenges for cravings. Seek medical attention in case of worsening or new concerning symptoms. Discharge Attestations Time Spent in Discharge Care*: greater than 30 min Quality Metrics Clinical Quality Measures [ No reported AMI, CVA or VTE this stay] Coding Level of Care Code 79371 Total time (in minutes) for Discharge: 55 Diagnoses KILO (acute kidney injury) N17.9 Shock R57.9 Hyperkalemia E87.5 Diarrhea R19.7
--- NOTE | 2024-08-30 11:13 | PC.NURSE ---
IV cath removed. Hameed removed. Both removed intact. Pt tolerated both well. Pt instructed he would need to urinate before he could be discharged. Urinal provided.. Monitoring off. Pt up to chair with stand by assist and walker. Pt instructed to take his time, go ahead and get dressed. His ride was notified per pt, she is driving up from [place]
--- NOTE | 2024-08-30 12:17 | PC.NURSE ---
Pt just informed this nurse that his ride will not be here unto 2pm. He does not have his rolling walker with him, unable to sit in patient waiting area at this time.
--- NOTE | 2024-08-30 14:31 | P.PN_ITS ---
Subjective 2 Subjective: no new c/o Medications: Reviewed: Yes Vitals/I&O/Wt Last Vital Signs Temp 98.4 F 08/30/24 07:26 Pulse 73 08/30/24 11:30 Resp 19 H 08/30/24 11:30 BP 120/87 08/30/24 11:30 Pulse Ox 97 08/30/24 11:30 O2 Del Method Room Air 08/30/24 11:30 08/29/24 08/30/24 08/30/24 22:59 06:59 14:59 Intake Total 1285.396 / 2438.646 1291.667 / 3730.313 1500 / 1500 Output Total 900 / 1700 475 / 475 Balance 1285.396 / 1638.646 391.667 / 2030.313 1025 / 1025 Weight last 48 hrs Weight 95.708 kg Weight 100.5 kg Physical Exam 2 Narrative: Patient is hemodynamically stable no apparent distress in bed on pressors. HEENT normocephalic/atraumatic. Neck is supple no JVP Lungs clear to auscultation. Heart regular no rubs or gallops. Abdomen soft positive bowel sounds extremities have no edema neurologically awake alert oriented x 3. Urinary Catheter Management: Hameed: Cath Placed During This Visit: yes, but has since been removed by the nurse Reason for Continuing Indwelling Catheter: Decision to DC Catheter Date Urinary Catheter Removed: 08/30/24 Time Urinary Catheter Discontinued: 11:12 Data 08/30/24 05:09 08/30/24 05:09 Micro: Microbiology 08/28/24 10:24 Blood Culture - Preliminary Blood NEGATIVE TO DATE 08/28/24 10:24 Blood Culture - Preliminary Blood NEGATIVE TO DATE A&P Assessment and plan (1) KILO (acute kidney injury): 59-year-old man with some degree of heart failure with home was on humidity spironolactone losartan and potassium. Patient presented after falling and having lethargy. The patient is being evaluated for cardiogenic versus septic shock or mixed picture. 1. Acute kidney injury : Cr improving CT scan had normal kidneys. No stones noted. No hydronephrosis. Urinalysis was cloudy 1+ protein trace leuk esterase 3-5 RBCs, urine squamous epithelial cells 11-20 hyaline casts 0.46. suspect underlying CKD , will check basic serologies. Will check an SPEP and serum immunofixation. The patient is using NSAIDs however not that often. 2. Hyponatremia likely from overdiuresis. Check urine electrolites and s/p IVFs , Na improved 3. Hyperkalemia likely from acute kidney injury taking potassium and losartan. His metabolic acidosis. 4. Increased anion gap metabolic acidosis, monitor No ketones in urine. Normal lactic acid. Glucose 136 unlikely to be DKA. Patient was not on an SGLT2 inhibitor as far as we know. Urine tox negative. 5,Anemia . Patient was seen and examined with the aid of a nurse using audiovisual equipment. The patient consented to telehealth. Plan See above. PDMP PDMP Reviewed: Not Reviewed Attestations 2 Medical Necessity Statement*: per medicine Coding Level of Care Code Acute Code for [facility] Fwd Diagnoses KILO (acute kidney injury) N17.9
--- NOTE | 2024-08-30 15:31 | PC.NURSE ---
1410: Pt's ride arrived. Pt dressed. minimal urine void, Dr Coy notified . Order for bladder scan prior to discharge received. 1420: Bladder scanned. 74 ml. Orders to discharge if less than 200 ml. 1430: Started reviewing discharge with pt and family. Significant other stated they did not have a BP cuff, nor could they afford one, nor could they drive in 5 miles everyday to [place] to check BP. Notified Dr Coy of need. DME order added to discharge. 1515: Bp cuff ready. Discharge instructions reviewed with patient and Significant other. Questions about follow-up appts answered. Pt and family declined to go over medication and disease care notes. Stated they would read them at home. BP log provided. Pt to front entrance via W/C.
[2024-08-30 19:39] LABS: Anti-Nuclear Antibody Screen NEGATIVE (NEGATIVE)
[2024-08-30 23:35] LABS: Immunofixation Serum Normal pattern.
[2024-09-01 09:29] LABS: Kappa Free Light Chains Urine 38.83 mg/L (<=32.90)
== END 2024-08-30 15:15 | disposition home or self-care (01) | DRG 682 ==
LOC: ER 08-28 06:34 → ICU 08-28 07:49
PROVIDERS: General Practice; Internal Medicine Nephrology; Admitting Provider Internal Medicine; Emergency Provider Family Medicine; Visit Provider Internal Medicine
DX: N17.9 Acute kidney failure, unspecified (principal); R57.1 Hypovolemic shock; I13.0 Hypertensive heart and chronic kidney disease with heart failure and stage 1 through stage 4 chronic kidney disease, or unspecified chronic kidney disease; J36 Peritonsillar abscess; E87.20 Acidosis, unspecified; E87.5 Hyperkalemia; I95.9 Hypotension, unspecified; R19.7 Diarrhea, unspecified; I50.9 Heart failure, unspecified; N18.9 Chronic kidney disease, unspecified; F17.210 Nicotine dependence, cigarettes, uncomplicated; E86.0 Dehydration; L73.2 Hidradenitis suppurativa; I44.0 Atrioventricular block, first degree; Z87.01 Personal history of pneumonia (recurrent)
CPT/HCPCS: 36415; 36416; 51798; 70486; 71045; 74176; 80048; 80053; 80306; 81001; 82044; 82306; 82310; 82436; 82533; 82550; 82570; 82728; 82962; 83540; 83550; 83605; 83735; 83883; 83970; 84100; 84133; 84155; 84156; 84165; 84166; 84300; 84443; 84484; 84550; 85025; 86038; 86225; 86334; 86335; 86803; 87040; 87493; 93005; 93306; 94640; 96365; 96367; 96375; 99291; J0171; J0612; J1815; J3475; J3490; J7030; J7050; J7060; J7120; J7611; J7799; J9999; Q3014

== ENCOUNTER → 2024-09-05 12:47 | Outpatient (BNVA) | payer BC, SELFPAY | PROVIDERS: PCP Nurse Practitioner Family; Visit Provider Nurse Practitioner Family | DX: N17.9 Acute kidney failure, unspecified (principal); E87.5 Hyperkalemia; I50.9 Heart failure, unspecified | CPT/HCPCS: 80053; 80061; 82306; 83036; 83735; 84443; 85025 ==

== ENCOUNTER 2024-10-03 14:05 | Outpatient (CLI) | payer BC, SELFPAY ==
--- NOTE | 2024-10-03 14:13 | XR_ITS ---
WS: [id number] Exam: XR lumbar spine 2-3V* [id number] Date/Time of Exam: 10/03/2024 2:18 PM Reason For Exam: M54.50 - Low back pain, unspecified No fracture or malalignment. Marked spondylosis. Degenerative disc narrowing from L2-L5. Degenerative vacuum disc at L4-5. Facet DJD at all levels. Straightening. XR/XR lumbar spine 2-3V* [id number] IMPRESSION: 1. Moderately advanced degenerative changes and spondylosis. Straightening. 2. No fracture or malalignment.
== END 2024-10-03 14:06 | disposition home or self-care (01) ==
PROVIDERS: PCP Nurse Practitioner Family; Visit Provider Nurse Practitioner Family
DX: M54.50 Low back pain, unspecified (principal); G89.29 Other chronic pain; M51.369 Other intervertebral disc degeneration, lumbar region without mention of lumbar back pain or lower extremity pain; M47.816 Spondylosis without myelopathy or radiculopathy, lumbar region; M40.36 Flatback syndrome, lumbar region
CPT/HCPCS: 72100

== ENCOUNTER → 2024-10-23 15:16 | Outpatient (BNVA) | payer BC, SELFPAY | PROVIDERS: PCP Nurse Practitioner Family; Visit Provider Nurse Practitioner Family | DX: N17.9 Acute kidney failure, unspecified (principal); I50.9 Heart failure, unspecified; M54.50 Low back pain, unspecified; G89.29 Other chronic pain; R53.1 Weakness | CPT/HCPCS: 80053; 83540; 85025 ==